=== PATIENT | female | born 1935 | race Caucasian/White ===

== ENCOUNTER → 2016-09-07 | Outpatient (CLI) | payer OTHER ==
[~2016-09-07] VITALS: Ht 160 cm; Wt 68.0 kg
[~2016-09-07] MED LIST: ASPIRIN81 M2 PO; CELEXA20 MG PO; CULTURELLE KID1 EAC1 PO; CYMBALTA60 MG PO; DITROPAN XL10 M1 PO; DYAZIDE 37.5-21 EACH PO; FLEXERIL PO; HYDROCODON-ACE1 EAC7 PO; LISINOPRIL20 MG PO; MOBIC15 MG PO; MUCINEX TA600 MG/TA2 PO; MYRBETRIQ50 MG PO; NITROFURANTOIN100 MG PO; OMEGA-31000 M1 PO; OMEPRAZOLE20 M2 PO; SIMVASTATIN80 MG PO; SINEMET 25-1001 EAC1 PO; VITAMIN D-32000 UNIT PO
[2016-09-07 15:25] LABS: HEMATOCRIT 34.4 % (37.0-47.0); HEMOGLOBIN 11.5 gm/dL (12.0-15.0); MCH 28.5 pg (26.0-34.0); MCHC 33.4 g/dL (28.0-37.0); MCV 85.6 fL (80.0-100.0); RBC 4.02 mil/uL (4.20-5.00); RDW 14.8 % (10.5-14.5); WBC 9.6 thou/uL (4.0-11.0)
[2016-09-07 15:33] LABS: ALBUMIN 3.4 g/dL (3.4-5.0); CALCIUM 8.7 mg/dL (8.5-10.1); CREATININE 1.3 mg/dL (0.6-1.0); POTASSIUM 4.1 mmol/L (3.5-5.1)
[2016-09-07 15:41] LABS: PROTIME 10.5 Seconds (9.3-11.4)
[2016-09-07 16:20] LABS: URINE BILIRUBIN NEGATIVE (Negative); URINE BLOOD NEGATIVE (Negative); URINE COLOR YELLOW; URINE GLUCOSE-RANDOM* NEGATIVE (Negative); URINE KETONES NEGATIVE (Negative); URINE LEUKOCYTES-REFLEX NEGATIVE (Negative); URINE PROTEIN (DIPSTICK) NEGATIVE (Negative); URINE UROBILINOGEN 0.2 E.U./dl (0.2-1.0)
== END ==
LOC: PAC 13:29 → PRE 09-22 08:14 → EDSTATUS 09-22 08:32 → PRE 09-22 10:06
PROVIDERS: Orthopaedic Surgery
DX: Z01.812 Encounter for preprocedural laboratory examination (principal)

== ENCOUNTER → 2018-02-25 | Outpatient (CLI) | payer OTHER ==
[~2018-02-25] VITALS: Ht 157.5 cm; Wt 65.3 kg
[~2018-02-25] MED LIST changes: +ALENDRONATE SOD70 MG PO; +AMANTADINE100 M1 PO; +CALCIUM PO; +MAXZIDE-25 MG1 EACH PO; +ROXICODONE5 M2 PO; +VOLTAREN GEL 1100 G2 TOP
--- NOTE | ~2018-02-25 | HPC ---
[facility] [place] [address] PAIN MANAGEMENT CONSULTATION Name: KATHY DANIEL Room #: REG HOOD Mimi.#: [id number] Admission: 02/25/18 Attend Phys: Jari Cole MD Discharge: Date of : 39 Report #: [id number] THIS REPORT FOR: //name// CC: Milton Cole DATE OF SERVICE: 02/25/2018 CHIEF COMPLAINT: "Unbearable excruciating pain in my legs when I am walking." FOLLOW-UP HISTORY: The patient is an 82-year-old female who has been referred to the Pain Clinic for evaluation of pain. She states that she has pain in her knees bilaterally. She is not having significant back pain. Over the last 4 weeks, she has noted a flare-up in her pain. Pain has been problematic since about 2012. She rates her pain as a 10/10. She describes it as constant. It can be problematic when she is dangling her feet, painful when sitting. She describes the discomfort as continuous, steady, constant, crushing, pulling and gnawing. She is not sure of anything that has made it better. She has received injections in the knees but the pain improvement only lasted about a week. MEDICATIONS: Oxycodone 5 mg b.i.d., Voltaren gel 1% four times daily to upper extremity, Maxzide 25 mg, calcium, alendronate 70 mg weekly, meloxicam 15 mg, amantadine 100 mg, Sinemet 25/100 q.i.d., omega-3 1000 mg, vitamin D3, Celexa 20 mg, aspirin 81 mg, omeprazole 20 mg, simvastatin 80 mg. PAIN CLINIC ASSESSMENT: 1. History of osteoarthritis: The patient has some osteoarthritic changes in the left lower extremity as well as the right lower extremity. 2. The patient is not being treated for rheumatoid arthritis. 3. Height 5 feet 2 inches, weight 144 pounds, BMI 26.3. 4. Vital signs: Blood pressure 144/77, pulse 87, respiratory rate 18, room air saturation 99%. 5. Pain intensity: /10. 6. Fall history: The patient does have some problems with walking. She fell while going outside and landed on the right hip. She had some bruising on that side. 7. Blood thinner: The patient is not on a blood thinning medication. 8. Hypertension: The patient is being treated for hypertension. 9. Opioid therapy greater than 6 weeks. 10. Risk assessment tool: Low for opioid use. 11. Functional assessment tool. 12. Recreational drug use: The patient denies. 13. Tobacco: The patient has never smoked. 14. Alcohol: The patient denies frequent use of alcoholic beverages. PHYSICAL EXAMINATION: [facility] [address] [place] [address] PAIN MANAGEMENT CONSULTATION Name: KATHY DANIEL Room #: REG CLI [facility]#: [id number] Admission: 02/25/18 Attend Phys: Jair Cole MD Discharge: Date of : 39 Report #: [id number] GENERAL: The patient is a well-developed, well-nourished white female. She appears her stated age. She is alert, oriented x 3. Affect is appropriate. Speech is fluent. HEENT: Normocephalic, atraumatic. Extraocular eye muscles intact. NECK: Without adenopathy. Reasonable range of motion. Upper extremity muscle strength judged to be 4+/5 for the major muscle groups in the upper extremity. HEART: Regular rate. ABDOMEN: Nontender. Bowel sounds present. EXTREMITIES: Lower extremities: The patient complains of pain and discomfort involving her left and right knee with a complaint of pins and needle sensation as well as stabbing sensation in the knees bilaterally. IMPRESSION: Chronic bilateral knee pain. RECOMMENDATION: We discussed treatment options with the patient. At this juncture, we will continue a conservative approach. The patient is not a candidate for surgery. We will try Roxicodone 5 mg t.i.d. The patient will continue to use Voltaren gel as needed. She feels that the Roxicodone 5 mg b.i.d. was not adequate. We will give this a try and note its efficacy. We would like to thank you for letting us participate in her care. We hope she continues to improve. <ELECTRONICALLY SIGNED> By: Jair Cole MD 03/14/18 [id number] Jair Cole MD /nt
[2018-02-25 13:01] VITALS: BP 144/77
== END ==
LOC: PAIN 09:50
DX: M25.562 Pain in left knee (principal); M25.561 Pain in right knee; M17.0 Bilateral primary osteoarthritis of knee; Z79.899 Other long term (current) drug therapy